=== PATIENT | female | born 1980 | race American Indian/Alaskan Native ===

== ENCOUNTER 2017-12-17 12:54 | Outpatient (CLI) | payer BC ==
--- NOTE | 2017-12-20 09:05 | Magnetic Resonance Report ---
BILATERAL BREAST MRI WITHOUT AND WITH CONTRAST: 12/17/17 12:54:00 CLINICAL: 37-year-old at high-risk for breast cancer, BRCA2 positive gene mutation and family history of breast cancer. Left breast pain. COMPARISON:03/01/17 and 10/30/13 bilateral mammograms TECHNIQUE: Axial 1.0-mm T1 without, axial high resolution 2.0-mm T2 and axial 1.0-mm dynamic Vibrant high-resolution postcontrast T1 fat saturation sequences on a 1.5 Lily magnet. The examination was performed with an 8 channel dedicated [employer] breast coil. Post processing with CAD and subtraction was performed on an [employer] workstation. 20 cc of Multihance was injected without incident for the contrast portion of the exam. Consent was obtained prior to the administration of the contrast. FINDINGS: Right: Minimal background parenchymal enhancement. A 5 mm enhancing mass at 1 o'clock 3.7 cm from the nipple measures 5 mm x 4.1 mm x 6.7 mm. It demonstrates heterogeneous enhancement with mixed kinetics 96% peak enhancement and 45% type III washout. The mass is identified on T1 but not on T2 sequences. No morphologic features to suggest that this may be a lymph node. There is no correlate on the previous mammograms. No other mass or suspicious enhancement. No suspicious right axillary or right internal mammary lymph nodes. Left: Minimal background parenchymal enhancement. No mass or suspicious enhancement. No suspicious left axillary or left internal mammary lymph nodes. IMPRESSION: 1. A suspicious 6.7 mm right breast mass at 1 o'clock 3.7 cm from the nipple. CT-guided MRI biopsy would be feasible. However, recommend targeted right breast ultrasound to see if the lesion is identified by ultrasound. 2. Negative left breast with no explanation for left breast pain. RIGHT BI-RADS 4 -- Suspicious LEFT BI-RADS 1 -- Negative
== END 2017-12-17 12:55 | disposition home or self-care (01) ==
LOC: SPVIMAG 12:54
PROVIDERS: ATTEND Surgery
DX: N63.10 Unspecified lump in the right breast, unspecified quadrant (principal); N64.4 Mastodynia; Z15.01 Genetic susceptibility to malignant neoplasm of breast; Z80.3 Family history of malignant neoplasm of breast
CPT/HCPCS: A9577; C8908; 77059

== ENCOUNTER 2017-12-25 09:32 | Outpatient (CLI) | payer BC ==
--- NOTE | 2017-12-25 15:13 | Ultrasound Report ---
TARGETED RIGHT BREAST ULTRASOUND: 12/25/17 09:32:00 CLINICAL: High-risk patient with a 6.7 mm lesion identified on MRI at 1 o'clock 3.7 cm from the nipple COMPARISON: 12/17/17 MRI Breast Bilateral FINDINGS: Targeted ultrasound of the right breast demonstrated an oval hyperechoic structure which appears to be normal fibroglandular tissue at 1 o'clock 2 cm from the nipple. It appears to correlate with the finding on MRI.It measures approximately 5 x 2 x 5 mm and demonstrates no shadowing or blood flow at color Doppler. IMPRESSION: Probably focal benign breast tissue at 1 o'clock 2 cm from the nipple. It appears to correlate with the MRI finding and has no suspicious features by ultrasound. BI-RADS 3 - - Probably Benign RECOMMENDATION: Six month followup right mammogram, right breast ultrasound and breast MRI.
== END 2017-12-25 09:33 | disposition home or self-care (01) ==
LOC: SPVWC 09:32
PROVIDERS: ATTEND Surgery
DX: N63.10 Unspecified lump in the right breast, unspecified quadrant (principal); Z15.01 Genetic susceptibility to malignant neoplasm of breast

== ENCOUNTER 2019-04-11 09:00 | Outpatient (CLI) | payer BC ==
--- NOTE | 2019-04-11 14:40 | Magnetic Resonance Report ---
BILATERAL BREAST MRI WITHOUT AND WITH CONTRAST: 04/11/19 09:00:00 CLINICAL: 38 year-old at high risk for breast cancer given BRCA2 positive gene mutation. Followup of a 6.7 mm right breast mass at 1 o'clock 3.7 cm from the nipple identified on previous MRI. COMPARISON:12/17/17 MRI, 12/25/17 right breast ultrasound and 08/23/18 and 12/25/17 mammograms. TECHNIQUE: Axial 1.0-mm T1 without, axial high resolution 2.0-mm T2 and axial 1.0-mm dynamic Vibrant high-resolution postcontrast T1 fat saturation sequences on a 1.5 Lily magnet. The examination was performed with an 8 channel dedicated [employer] breast coil. Post processing with CAD and subtraction was performed on an [employer]™ Audio workstation. 19.0 cc of Multihance was injected without incident for the contrast portion of the exam. Consent was obtained prior to the administration of the contrast. FINDINGS: Right: Minimal background parenchymal enhancement. No mass or suspicious enhancement. The previously described lesion at 1 o'clock approximately 4 cm from the nipple is not identified on this exam. No suspicious lymph nodes. Left: Minimal background parenchymal enhancement. No mass or suspicious enhancement. No suspicious lymph nodes. IMPRESSION: Negative bilateral breast MRI. Resolution of the previously identified lesion in the right breast at 1 o'clock. Recommend routine mammographic screening and routine MRI screening. RIGHT BI-RADS 1 - - Negative
== END 2019-04-11 09:01 | disposition home or self-care (01) ==
LOC: SPVIMAG 09:00
PROVIDERS: ATTEND Surgery
DX: Z15.01 Genetic susceptibility to malignant neoplasm of breast (principal); J45.909 Unspecified asthma, uncomplicated; Z90.710 Acquired absence of both cervix and uterus
CPT/HCPCS: A9577; C8908; 77049